=== PATIENT | female | born 1970 | race Two or more races ===

== ENCOUNTER 2022-12-24 08:24 | Outpatient (OUT) | payer BC, SELFPAY ==
--- NOTE | 2022-12-24 09:14 | CA_ITS ---
Patient: CHRISTIANO QUIJANO Exam Date: 12/24/2022 : 1970 Gender:F Ordering : CANDELARIO NAVA Admission #: [id number] Family : Order #: [id number] CLICK HERE TO VIEW EXAM ECHOCARDIOGRAM REPORT PROCEDURE: CA ECHO DOPPLER COMPLETE INDICATIONS: Pre-operative clearance, hypertension, diabetes COMPARISON: None. DESCRIPTION: COMPLETE ECHOCARDIOGRAM Real-time transthoracic echocardiography with 2D, M-mode, spectral and color flow Doppler performed. QUALITY: Technical quality was good. LEFT VENTRICLE: Normal chamber size. Mild concentric left ventricular hypertrophy. Normal systolic function. LV EF: Normal left ventricular ejection fraction, (>55%). DIASTOLIC: Diastolic function is indeterminate. ATRIAL SEPTUM: Visually appears intact. LEFT ATRIUM: Normal chamber size. RIGHT ATRIUM: Normal chamber size. RIGHT VENTRICLE: Normal chamber size. Normal right ventricular systolic function. TRICUSPID VALVE: Normal mobility and thickness. No stenosis with trivial regurgitation. Doppler studies reveal mildly (35-45) elevated right sided pressures. RVSP 45 mmHg MITRAL VALVE: Normal mobility and thickness. No evidence of mitral valve stenosis. Mild mitral annular calcification. No mitral regurgitation. AORTIC VALVE: Normal trileaflet appearance. No visible sclerosis. Normal leaflet mobility. No evidence of aortic valve stenosis. No aortic regurgitation. AORTIC ROOT: Normal diameter and appearance. PULMONIC VALVE: Normal thickness and mobility. No stenosis. No regurgitation. PERICARDIUM: No evidence of pericardial effusion. IVC: Collapses with inspirations. PLEURA: CONCLUSION: 1. Mild concentric left ventricular hypertrophy. Normal left ventricular systolic function. LVEF is 55 to 60%. 2. Normal right ventricular size and systolic function. 3. No significant valvular dysfunction. 4. Mildly elevated right-sided pressures. 5. No pericardial effusion. Adult Echocardiography Procedure Report Left Ventricle LVEDD (3.7 - 5.6 cm): 4.82 cm LVESD (2.2 - 4.0 cm): 2.92 cm LVIVS thickness (0.6 - 1.2 cm): 1.12 cm LVPW thickness (0.5 - 1.0 cm): 1.16 cm e': 0.09 m/s E - e': 8.12 LVOT Max Gradient: 3.72 mm[Hg], 3.83 mm[Hg] LVOT Area (cm2): 0.97 m/s Peak Velocity (LVOT): 0.96 m/s, 0.98 m/s Mean Velocity (LVOT): 0.69 m/s LVOT Diameter 2.47 cm Left Atrium LA Volume Index (2D A2C): 31.99 ml/m2 Left Atrium Systolic Dimension: 3.60 cm Mitral Valve MV E to A Ratio: 0.72 Mitral Valve A-Wave Peak Velocity: 1.01 m/s Mitral Valve E-Wave Peak Velocity: 0.72 m/s Right Ventricle Aorta AO Root Diam: 3.28 cm Aortic Valve AoV Area (Peak Ramesh): 3.91 cm2, 3.88 cm2 Peak Velocity(Antegrade Flow): 1.19 m/s Peak Gradient(Antegrade Flow): 5.70 mm[Hg] Tricuspid Valve Peak Velocity (Regurgitant Flow): 3.24 m/s Pulmonic Valve Peak Velocity: 0.94 m/s Peak Gradient: 3.20 mm[Hg], 3.90 mm[Hg] Right Atrium Right Atrium Systolic Pressure: 43.35 ml, 43.35 ml Dictated by: Derian Hamilton M.D. on 12/24/2022 at 18:31 Approved by: Derian Hamilton M.D. on 12/24/2022 at 18:33
== END 2022-12-24 08:25 | disposition home or self-care (01) ==
PROVIDERS: Visit Provider Internal Medicine Cardiovascular Disease
DX: Z01.818 Encounter for other preprocedural examination (principal)
CPT/HCPCS: 93306